=== PATIENT | female | born 1945 | race Caucasian/White ===

== ENCOUNTER → 2016-11-21 | Day surgery (SDC) | payer MEDICARE, OTHER ==
[~2016-11-21] MED LIST: AMARYL 2MG TABLE2 MG PO; AMARYL2 MG PO; ARICEPT 5MG TABL5 MG PO; ASPIRIN EC81 MG PO; BYDUREON2 MG SC; CEFDINIR300 MG PO; CLEOCIN300 MG PO; DUONEB 2.5-0.5M1 AMP INH; FEOSOL325 MG PO; LANTUS **100 UNITS/ SQ; LANTUS100 UNIT/1 SC; LASIX20 MG PO; LEVAQUIN750 MG PO; LEVOTHYROXINE125 MCG PO; LISINOPRIL20 MG PO; MELATONIN10 M2 PO; MELATONIN10 MG PO; MELOXICAM7.5 MG PO; MUCINEX 600MG600 MG PO; MUCINEX600 MG PO; NAMENDA 10MG TA10 MG PO; NAMENDA5 MG PO; NOVOLOG VI100 UNIT/1 SC; NOVOLOG VI100 UNIT/1 SQ; PREDNISONE 10MG10 MG PO; PRILOSEC20 MG PO; PROAIR HFA8.5 GM INH; SYNTHROID112 MC1 PO; TOPROL XL 50 MG50 MG PO; TOPROL XL50 MG PO; TRAZODONE 50MG50 MG PO; VIBRAMYCIN100 MG PO; ZOCOR40 MG PO
== END | disposition home or self-care (01) ==
LOC: FAS 06:55
DX: K57.30 Diverticulosis of large intestine without perforation or abscess without bleeding (principal); K58.9 Irritable bowel syndrome, unspecified; K64.9 Unspecified hemorrhoids; K21.9 Gastro-esophageal reflux disease without esophagitis; I10 Essential (primary) hypertension; I25.10 Atherosclerotic heart disease of native coronary artery without angina pectoris; E11.9 Type 2 diabetes mellitus without complications; E78.00 Pure hypercholesterolemia, unspecified; F32.9 Major depressive disorder, single episode, unspecified; G30.9 Alzheimer's disease, unspecified; J44.9 Chronic obstructive pulmonary disease, unspecified; M19.90 Unspecified osteoarthritis, unspecified site; Z87.891 Personal history of nicotine dependence; Z90.710 Acquired absence of both cervix and uterus; Z98.890 Other specified postprocedural states; Z98.49 Cataract extraction status, unspecified eye; Z90.89 Acquired absence of other organs; Z82.5 Family history of asthma and other chronic lower respiratory diseases; Z82.61 Family history of arthritis; Z80.3 Family history of malignant neoplasm of breast; Z83.3 Family history of diabetes mellitus; Z82.49 Family history of ischemic heart disease and other diseases of the circulatory system; Z79.4 Long term (current) use of insulin; Z79.899 Other long term (current) drug therapy
CPT/HCPCS: 82962; J2704

== ENCOUNTER 2016-12-09 03:15 | Day surgery (SDCO) | payer MEDICARE, OTHER ==
[~2016-12-09 03:15] MED LIST changes: -AMARYL 2MG TABLE2 MG PO; -LANTUS100 UNIT/1 SC; -LASIX20 MG PO; -MELATONIN10 M2 PO; -MUCINEX600 MG PO; -NAMENDA 10MG TA10 MG PO; -NAMENDA5 MG PO; -NOVOLOG VI100 UNIT/1 SC; -PREDNISONE 10MG10 MG PO; -PROAIR HFA8.5 GM INH; -SYNTHROID112 MC1 PO; -TOPROL XL 50 MG50 MG PO; -VIBRAMYCIN100 MG PO
[2016-12-09 04:11] LABS: BASOPHIL 0.1 % (0-2); EOSINOPHIL 0.7 % (0-7); HCT 31.7 % (37.0-47.0); HGB 9.7 g/dl (12.5-16.0); LYMPHOCYTE 3.9 % (15-48); MCH 28.9 pg (25.0-31.0); MCHC 30.6 g/dL (32.0-36.0); MCV 94.3 fL (78.0-100.0); MONOCYTE 7.7 % (0-12); MPV 10.5 fL (6.0-9.5); NEUTROPHIL 87.6 % (41-80); PLT 168 K/uL (150-400); RBC 3.36 M/uL (4.20-5.40); RDW 12.5 % (11.5-14.0)
[2016-12-09 04:20] LABS: INR 1.05 (0.9-1.2); PROTHROMBIN TIME 13.3 SECONDS (11.7-14.0); PTT 33.7 SECONDS (23.2-31.4)
[2016-12-09 04:31] LABS: LACTIC ACID 0.6 mmol/L (0.5-2.2)
[2016-12-09 04:32] LABS: ALBUMIN 3.3 g/dL (3.4-4.8); BILIRUBIN - TOTAL 0.2 mg/dL (0.1-1.0); CREATININE 0.7 mg/dL (0.5-1.0); POTASSIUM 3.8 mmol/L (3.5-5.1); TOTAL PROTEIN 6.3 g/dL (6.4-8.3)
[2016-12-09 04:42] LABS: FT4 (FREE T4) 2.48 ng/dL (0.93-1.70); TSH (THYROID STIM HORMONE) 0.152 uIU/mL (0.270-4.200)
[2016-12-09 06:03] LABS: BILIRUBIN NEGATIVE (NEGATIVE); BLOOD NEGATIVE Ery/uL (NEGATIVE); CLARITY CLEAR (CLEAR); COLOR YELLOW (YELLOW); GLUCOSE (U) NORMAL (NORMAL); KETONE (U) NEGATIVE (NEGATIVE); LEUKOCYTES NEGATIVE Leu/uL (NEGATIVE); NITRITE POSITIVE (NEGATIVE); PROTEIN NEGATIVE (NEGATIVE); SPECIFIC GRAVITY <=1.005 (1.001-1.030); UROBILINOGEN 0.2 mg/dL (0.2-1.0)
[2016-12-09 06:06] LABS: URINARY WBC RARE
[2016-12-10 05:40] LABS: HCT 31.6 % (37.0-47.0); HGB 9.6 g/dl (12.5-16.0); MCH 28.5 pg (25.0-31.0); MCHC 30.4 g/dL (32.0-36.0); MCV 93.8 fL (78.0-100.0); MPV 10.9 fL (6.0-9.5); RBC 3.37 M/uL (4.20-5.40); RDW 12.6 % (11.5-14.0); WBC 9.2 K/uL (4.0-10.5)
[2016-12-10 06:01] LABS: CREATININE 0.7 mg/dL (0.5-1.0); POTASSIUM 3.6 mmol/L (3.5-5.1)
[2016-12-10] MEDS ORDERED: NAMENDA 10MG TA10 MG PO (13:08)
[2016-12-10] MEDS ORDERED: PROAIR HFA8.5 GM INH (13:09)
[2016-12-10] MEDS ORDERED: CEFDINIR300 MG PO (13:10)
[2017-05-17] MEDS ORDERED: SYNTHROID112 MC1 PO (11:00)
[2017-05-17] MEDS ORDERED: VIBRAMYCIN100 MG PO (11:00)
[2017-05-17] MEDS ORDERED: PREDNISONE 10MG10 MG PO (11:01)
[2017-05-17] MEDS ORDERED: LASIX20 MG PO (11:01)
[2017-05-17] MEDS ORDERED: TRAZODONE 50MG50 MG PO (11:14)
[2017-05-17] MEDS ORDERED: ZOCOR40 MG PO (11:14)
[2017-05-17] MEDS ORDERED: AMARYL 2MG TABLE2 MG PO (11:26)
[2017-05-17] MEDS ORDERED: NAMENDA5 MG PO (11:26)
[2017-05-17] MEDS ORDERED: MELATONIN10 M2 PO (11:27)
[2017-05-17] MEDS ORDERED: PRILOSEC20 MG PO (11:27)
[2017-05-17] MEDS ORDERED: TOPROL XL 50 MG50 MG PO (11:27)
[2017-05-17] MEDS ORDERED: LANTUS100 UNIT/1 SC (11:28)
[2017-05-17] MEDS ORDERED: NOVOLOG VI100 UNIT/1 SC (11:28)
[2017-05-17] MEDS ORDERED: DUONEB 2.5-0.5M1 AMP INH (11:28)
[2017-05-17] MEDS ORDERED: MUCINEX600 MG PO (11:28)
[2017-05-17] MEDS ORDERED: PROAIR HFA8.5 GM INH (11:29)
== END 2016-12-10 12:38 | disposition home health service (06) ==
LOC: FER 03:15 → FICU 08:50 → FMS 14:20
PROVIDERS: Emergency Medicine Emergency Medical Services; ADMIT Internal Medicine
DX: E11.649 Type 2 diabetes mellitus with hypoglycemia without coma (principal); G93.41 Metabolic encephalopathy; J44.9 Chronic obstructive pulmonary disease, unspecified; J96.10 Chronic respiratory failure, unspecified whether with hypoxia or hypercapnia; I10 Essential (primary) hypertension; E78.5 Hyperlipidemia, unspecified; E03.9 Hypothyroidism, unspecified; F32.9 Major depressive disorder, single episode, unspecified; M19.90 Unspecified osteoarthritis, unspecified site; Z99.81 Dependence on supplemental oxygen; Z86.73 Personal history of transient ischemic attack (TIA), and cerebral infarction without residual deficits; Z90.710 Acquired absence of both cervix and uterus; Z79.4 Long term (current) use of insulin; Z79.899 Other long term (current) drug therapy; Z98.890 Other specified postprocedural states
CPT/HCPCS: 36415; 70450; 71010; 80048; 80053; 81001; 82962; 83605; 84439; 84443; 84484; 85025; 85610; 85730; 87040; 87088; 87804; 87899; 93005; 94640; G0378; J1644